=== PATIENT | male | born 1940 | race Caucasian/White ===

== ENCOUNTER 2018-02-19 09:59 | Day surgery (SDC) | payer MEDICARE, OTHER ==
[~2018-02-19] VITALS: Ht 182.9 cm; Wt 80.9 kg
[~2018-02-19 09:59] MED LIST: ASPI81CH PO; MULTI VITAMIN1 EACH PO; Omeprazole20 M1 PO; Simvastatin40 MG PO; TOCO1000 PO; TURMERIC500 M2 PO
[2018-02-19] MEDS ORDERED: Fish Oil 10001000 MG (10:30)
[2018-02-19] MEDS ORDERED: GLUC500 (10:30)
[2018-02-20] MEDS ORDERED: CYAN500 (14:51)
[2018-02-20] MEDS ORDERED: CHOL10002 (14:51)
== END 2018-02-19 12:28 | disposition home or self-care (01) ==
LOC: ORSCSDS 09:59
PROVIDERS: Anesthesiology
PROC: 3E0R33Z Introduction of Anti-inflammatory into Spinal Canal, Percutaneous Approach (ICD-10-PCS; principal; 2018-02-19 11:30)
DX: M51.16 Intervertebral disc disorders with radiculopathy, lumbar region (principal); Z87.891 Personal history of nicotine dependence; Z79.82 Long term (current) use of aspirin; Z79.899 Other long term (current) drug therapy
CPT/HCPCS: J1040

== ENCOUNTER 2018-02-20 13:40 | Day surgery (SDC) | payer MEDICARE, OTHER ==
[~2018-02-20] VITALS: Ht 185.4 cm; Wt 82.1 kg
[~2018-02-20 13:40] MED LIST changes: +Fish Oil 10001000 MG; +GLUC500
[2018-02-20] MEDS ORDERED: CHOL10002 (14:51)
[2018-02-20] MEDS ORDERED: CYAN500 (14:51)
== END 2018-02-20 23:00 | disposition home or self-care (01) ==
LOC: ORSCMMR 13:40 → ORD 14:15 → ORSCMMR 14:15
PROVIDERS: Orthopaedic Surgery
PROC: 0LQ30ZZ Repair Right Upper Arm Tendon, Open Approach (ICD-10-PCS; principal; 2018-02-20 16:35)
DX: M66.821 Spontaneous rupture of other tendons, right upper arm (principal); Z87.891 Personal history of nicotine dependence; K21.9 Gastro-esophageal reflux disease without esophagitis; Z79.82 Long term (current) use of aspirin; Z79.899 Other long term (current) drug therapy
CPT/HCPCS: J0171; J0690; J1100; J2405; J3010; J7120

== ENCOUNTER 2019-06-22 08:23 | Day surgery (SDC) | payer MEDICARE, OTHER ==
[~2019-06-22] VITALS: Ht 175.3 cm; Wt 87.7 kg
[~2019-06-22 08:23] MED LIST changes: +CHOL10002; +CYAN500
== END 2019-06-22 10:55 | disposition home or self-care (01) ==
LOC: ORSCSDS 08:23
PROVIDERS: Internal Medicine Gastroenterology
PROC: 0DB58ZX Excision of Esophagus, Via Natural or Artificial Opening Endoscopic, Diagnostic (ICD-10-PCS; principal; 2019-06-22 10:00)
DX: K21.0 Gastro-esophageal reflux disease with esophagitis (principal); R13.10 Dysphagia, unspecified; K44.9 Diaphragmatic hernia without obstruction or gangrene; R23.4 Changes in skin texture; K22.8 Other specified diseases of esophagus; Z87.891 Personal history of nicotine dependence; Z79.899 Other long term (current) drug therapy; Z79.82 Long term (current) use of aspirin
CPT/HCPCS: 88305; 88312; J2704; J7120

== ENCOUNTER 2021-08-09 14:26 | Inpatient (IN) | payer OTHER ==
[~2021-08-09] VITALS: Ht 182.9 cm; Wt 74.5 kg
[~2021-08-09 14:26] MED LIST changes: +AZAT50 PO; +Aspir 8181 MG PO; -CHOL10002; -CYAN500; +CYAN500 PO; +GLUC500 PO; +L-ARGININE500 MG PO; +OMEGA-3 KRILL1 EAC3 PO; +VITAMIN D31000 UNI1 PO
[2021-08-09 16:32] LABS: Source, Urine Catheter
[2021-08-09 16:35] LABS: Appearance, Urine Clear (Clear); Bilirubin, Urine Neg (Neg); Blood, Urine Neg (Neg); Color, Urine Yellow (P-Yellow); Glucose Qualitative, Urine Neg (Neg); Ketones, Urine Neg (Neg); Leukocyte Esterase, Urine Neg (Neg); Nitrite, Urine Neg (Neg); Protein, Urine Neg (Neg); Urobilinogen, Urine NORM (Normal)
[2021-08-09 16:43] LABS: BASOPHILS ABSOLUTE AUTO 0.04 K/mm3 (0.00-0.23); BASOPHILS PERCENT AUTO 0 % (0-2); EOSINOPHILS ABSOLUTE AUTO 0.29 K/mm3 (0.00-0.68); EOSINOPHILS PERCENT AUTO 2 % (0-6); Hemoglobin 12.3 g/dL (13.5-17.5); IMMATURE GRAN ABSOLUTE AUTO 0.05 K/mm3 (0.00-0.10); IMMATURE GRAN PERCENT AUTO 0 % (0-1); LYMPHOCYTES ABSOLUTE AUTO 1.27 K/mm3 (0.84-5.20); LYMPHOCYTES PERCENT AUTO 10 % (21-46); MONOCYTES ABSOLUTE AUTO 1.06 K/mm3 (0.16-1.47); MONOCYTES PERCENT AUTO 8 % (4-13); Mean Corpuscular HGB 33.5 pg (26.0-34.0); Mean Corpuscular HGB Conc 33.2 g/dL (31.5-36.5); Mean Corpuscular Volume 101 fL (80-100); Mean Platelet Volume 8.6 fL (9.1-12.4); NEUTROPHILS ABSOLUTE AUTO 10.02 K/mm3 (1.96-9.15); NEUTROPHILS PERCENT AUTO 79 % (41-73); Platelet Count 226 K/mm3 (150-400); RDW Coefficient Variation 13.3 % (11.7-14.2); RDW Standard Deviation 49.7 fL (35.1-46.3); Red Blood Cell Count 3.67 M/mm3 (4.30-5.90); White Blood Cell Count 12.73 K/mm3 (4.00-11.30)
[2021-08-09 17:15] LABS: Alanine Aminotransfer (ALT/SGP 25 U/L (12-78); Albumin, Blood 3.3 g/dL (3.4-5.0); Albumin/Globulin Ratio 0.9 (0.8-1.8); Alk Phos 39 U/L (50-136); Anion Gap 5 mmol/L (6-16); Aspartate Aminotrans (AST/SGOT 28 U/L (12-37); Bilirubin, Total 0.4 mg/dL (0.1-1.0); Blood Urea Nitrogen 20 mg/dL (8-24); CO2, Blood 27 mmol/L (21-32); Calcium, Blood 9.1 mg/dL (8.5-10.1); Chloride, Blood 107 mmol/L (98-108); Creatinine, Blood 0.74 mg/dL (0.60-1.20); Globulin, Blood 3.7 g/dL (2.2-4.0); Glomerular Filtration Rate >60 (60-); Glucose, Blood 99 mg/dL (70-99); Potassium, Blood 3.8 mmol/L (3.5-5.5); Sodium, Blood 139 mmol/L (136-145)
[2021-08-09 17:49] LABS: Influenza A, PCR NEGATIVE (NEGATIVE); Influenza B, PCR NEGATIVE (NEGATIVE); Resp Syncytial Virus, PCR NEGATIVE (NEGATIVE); SARS-Cov-2 (COVID-19) PCR, MMC NEGATIVE (NEGATIVE)
[2021-08-10 05:40] LABS: Hematocrit 37.5 % (37.0-53.0); Hemoglobin 12.1 g/dL (13.5-17.5); Mean Corpuscular HGB Conc 32.3 g/dL (31.5-36.5); Mean Corpuscular Volume 102 fL (80-100); Mean Platelet Volume 8.8 fL (9.1-12.4); Platelet Count 224 K/mm3 (150-400); RDW Coefficient Variation 13.3 % (11.7-14.2); RDW Standard Deviation 51.2 fL (35.1-46.3); Red Blood Cell Count 3.67 M/mm3 (4.30-5.90); White Blood Cell Count 9.96 K/mm3 (4.00-11.30)
[2021-08-10 06:06] LABS: Alanine Aminotransfer (ALT/SGP 24 U/L (12-78); Albumin, Blood 3.2 g/dL (3.4-5.0); Albumin/Globulin Ratio 0.8 (0.8-1.8); Alk Phos 33 U/L (50-136); Anion Gap 3 mmol/L (6-16); Aspartate Aminotrans (AST/SGOT 21 U/L (12-37); Bilirubin, Total 0.5 mg/dL (0.1-1.0); Blood Urea Nitrogen 12 mg/dL (8-24); Bun/Creatinine Ratio 17.7 (12.0-20.0); CO2, Blood 28 mmol/L (21-32); Calcium, Blood 8.9 mg/dL (8.5-10.1); Chloride, Blood 107 mmol/L (98-108); Creatinine, Blood 0.68 mg/dL (0.60-1.20); Globulin, Blood 3.8 g/dL (2.2-4.0); Glomerular Filtration Rate >60 (60-); Glucose, Blood 121 mg/dL (70-99); Sodium, Blood 138 mmol/L (136-145)
--- NOTE | 2021-08-10 06:16 | NUR ---
Pt is in bed at this time where he remains throughout the night and is resting comfortably in stable condition. Medicated with IV fentanyl for right leg pain as needed secondary to right leg fx, no other complaints. He verbalized pain relief. He is assisted with care and ADLs, ramos catheter is intact and is draining yellow-colored urine. Call light given to him and was encouraged to call for help when assistance is needed as he is monitored.
--- NOTE | 2021-08-10 14:54 | NUR ---
08/10/21 1454 LUZJEMAL BOWERS PT NOTED TO HAVE PRE EXISTING HASSAN CATH PRIOR TO PROCEDURE.
--- NOTE | 2021-08-10 18:31 | NUR ---
PATIENT CURRENTLY LYING IN BED WITH NO SIGNS OR SYMPTOMS ACUTE DISTRESS NOTED. NO COMPLAINTS OR NAUSEA AT THIS TIME. PATIENT BACK FROM SURGERY AT 1630, TOLERTATING DIET. TXA GIVEN PER ORDERS. PATIENT ABLE TO FEEL TOES AND FEET BUT STILL UNABLE TO MOVE HIS LEGS OR FEET. DRESSING TO R HIP CDI. HASSAN CATH IS PATENT DRAINING YELLOW URINE. HASSAN TO BE DC'D IN THE AM. VITAL SIGNS STABLE. ROOM AIR. CIWA SCORE WAS 0 AT 1715. HEATHER SORIANO.
[2021-08-11 04:07] LABS: BASOPHILS ABSOLUTE AUTO 0.02 K/mm3 (0.00-0.23); BASOPHILS PERCENT AUTO 0 % (0-2); EOSINOPHILS ABSOLUTE AUTO 0.42 K/mm3 (0.00-0.68); EOSINOPHILS PERCENT AUTO 5 % (0-6); Hematocrit 27.5 % (37.0-53.0); IMMATURE GRAN ABSOLUTE AUTO 0.03 K/mm3 (0.00-0.10); IMMATURE GRAN PERCENT AUTO 0 % (0-1); LYMPHOCYTES ABSOLUTE AUTO 1.73 K/mm3 (0.84-5.20); LYMPHOCYTES PERCENT AUTO 21 % (21-46); MONOCYTES ABSOLUTE AUTO 1.17 K/mm3 (0.16-1.47); MONOCYTES PERCENT AUTO 14 % (4-13); Mean Corpuscular HGB 33.7 pg (26.0-34.0); Mean Corpuscular HGB Conc 32.7 g/dL (31.5-36.5); Mean Corpuscular Volume 103 fL (80-100); Mean Platelet Volume 8.9 fL (9.1-12.4); NEUTROPHILS ABSOLUTE AUTO 4.91 K/mm3 (1.96-9.15); NEUTROPHILS PERCENT AUTO 59 % (41-73); Platelet Count 162 K/mm3 (150-400); RDW Coefficient Variation 13.4 % (11.7-14.2); RDW Standard Deviation 50.2 fL (35.1-46.3); Red Blood Cell Count 2.67 M/mm3 (4.30-5.90); White Blood Cell Count 8.28 K/mm3 (4.00-11.30)
[2021-08-11 04:27] LABS: Anion Gap 4 mmol/L (6-16); Blood Urea Nitrogen 12 mg/dL (8-24); Bun/Creatinine Ratio 14.9 (12.0-20.0); CO2, Blood 28 mmol/L (21-32); Calcium, Blood 8.1 mg/dL (8.5-10.1); Chloride, Blood 105 mmol/L (98-108); Creatinine, Blood 0.81 mg/dL (0.60-1.20); Glomerular Filtration Rate >60 (60-); Glucose, Blood 113 mg/dL (70-99); Magnesium, Blood 2.2 mg/dL (1.6-2.4); Potassium, Blood 4.1 mmol/L (3.5-5.5); Sodium, Blood 137 mmol/L (136-145)
--- NOTE | 2021-08-11 05:42 | NUR ---
Pt is in bed at this time where he remains through the night and is resting comfortably in stable condition. He right leg post op day 1, medicated with oral pain med as needed with positive effect, assisted with care and toileting needs. Assisted with other care / ADLs, medicated, call light placed hear him and was encouraged to call for help when assistance is needed as he is monitored.
--- NOTE | 2021-08-11 16:51 | NUR ---
Pt. has been accepted to [facility] for inpatient rehab. Prior auth obtained through [employer]. Chart notes faxed to facility. If pt. is appropriate for discharge over the weeked, he will need a STAT COVID test, transport scheduled through [facility] at [phone], and all discharge paperwork added to chart. Facility will need to receive negative COVID results via fax as well. Please contact Zayra Sanchez at [phone]
--- NOTE | 2021-08-11 17:13 | NUR ---
Shift Summary: Pt. up in recliner chair and tolerating well, remains toe touch RLE. Pain managed with Toradol this a.m. and Jimmy today, verbalize relief of pain as a 12/21. visiting in room. in this a.m. and shira. to RLE changed, ana.
--- NOTE | 2021-08-11 18:24 | NUR ---
continue to watch t.v. in recliner, tolerating well. states his pain is "under control" with vicodin i, approx q 4 hour.
[2021-08-12 04:15] LABS: Hematocrit 26.4 % (37.0-53.0); Hemoglobin 8.6 g/dL (13.5-17.5)
[2021-08-12 04:30] LABS: Anion Gap 2 mmol/L (6-16); Blood Urea Nitrogen 11 mg/dL (8-24); Bun/Creatinine Ratio 14.8 (12.0-20.0); CO2, Blood 29 mmol/L (21-32); Calcium, Blood 8.4 mg/dL (8.5-10.1); Chloride, Blood 105 mmol/L (98-108); Creatinine, Blood 0.74 mg/dL (0.60-1.20); Glomerular Filtration Rate >60 (60-); Glucose, Blood 111 mg/dL (70-99); Potassium, Blood 4.3 mmol/L (3.5-5.5); Sodium, Blood 136 mmol/L (136-145)
--- NOTE | 2021-08-12 06:24 | NUR ---
Pt is in bed at this time and is resting comfortably in stable condition. Assisted with care and ADLs, assisted with toileting needs, with turning and repositioning to enhance comfort. Reported right upper leg pain and was medicated with his PRN hydrocodone accordingly, no other complaints. His call light was placed near him and was encouraged to call for help when assistance is needed as he is monitored.
--- NOTE | 2021-08-12 18:38 | NUR ---
SHIFT SUMMARY PATIENT IS POD 2 CLOSED REDUCTION AND NAILING OF R HIP. FOAM DRESSING C/D/I; TOE TOUCH WB IN PLACE, PATIENT UP WITH ASSIST FROM BED TO CHAIR ON SHIFT; VSS. PATIENT REPORTS PAIN AT SURGICAL SITE AND REQUESTS PRN MEDICATION Q4HRS. PATIENT NEEDS EDUCATION AND REINFORCEMENT OF DUE TIMES FOR MEDICATION. CIWA PROTOCOL IN PLACE WITH SCORE OF 1 FOR MILD ANXIETY. PER DR BARBOSA PLAN FOR DC TO [facility] ON SATURDAY
[2021-08-13 04:03] LABS: Hematocrit 24.4 % (37.0-53.0); Hemoglobin 7.9 g/dL (13.5-17.5)
--- NOTE | 2021-08-13 06:08 | NUR ---
SHIFT SUMMARY POD3 R CLOSED REDUCTION FEMUR FX NAILING, A/O X4, VSS, TOLERATING PO, HEAVY 2-3 PERSON ASSIST TO TRANSFER/STAND PIVOT, PAIN MANAGED PER EMAR. NO ACUTE ENVENTS THIS SHIFT, NO BM SINCE OR. CALL LIGHT IN PLACE, WILL CTM AND REPORT TO DAY RN.
[2021-08-13 12:10] LABS: Hematocrit 24.8 % (37.0-53.0); Hemoglobin 8.1 g/dL (13.5-17.5)
--- NOTE | 2021-08-13 18:16 | NUR ---
SHIFT SUMMARY PT POD #3 FOR R CLOSED HIP REDUCTION WITH NAILING. [address] ON THE R HIP CDI. MEDICATED FOR PAIN PER EMR ORDERS. PT TO DC TO [facility] ON SATURDAY. VSS. WILL REPORT TO ANGELA WISEMAN.
--- NOTE | 2021-08-14 06:57 | NUR ---
PT IS A/OX3. ABLE TO MAKE HIS NEEDS KNOWN. NO EVENTS OVER NIGHT. IS [place]. 2PA WITH BED REPOSITIONING. HAS 2 AQUACEL DRSG'S TO RT HIP, BOTH WITH MINIMAL AMT OF OLD DRNG/SHADOWING. DENIED ANY NUNBNESS/TINGLING TO RLE. GOOD CSM'S.
[2021-08-14 08:33] LABS: Hematocrit 24.5 % (37.0-53.0)
[2021-08-14 10:38] LABS: SARS-Cov-2 (COVID-19) PCR, MMC NEGATIVE (NEGATIVE)
--- NOTE | 2021-08-14 17:09 | NUR ---
SHIFT SUMMARY PATIENT ALERT, ORIENTED AND MUCKLESHOOT. TOLERATING REGULAR DIET AND FLUIDS. SALINE LOCKED. USING URINAL. NO BM AT SINCE SURGERY. PATIENT HAS BEEN REFUSING SOME BOWEL CARE UP TO THIS TIME, BUT AFTER DISCUSSING EED FOR BM BEFORE DISCHARGE TO SNF PATIENT AGREED TO BOWEL CARE. READY FOR DISCHARGE TO [facility] AFTER BM. 2 PERSON MOD ASSIST WITH FWW AND GAIT BELT FOR TRANSFERS. AQUACELS TO RIGHT HIP WITH SHADOWING. WILL REPORT TO MANGLE TENDER RN.
[2021-08-15 00:33] LABS: Influenza A, PCR NEGATIVE (NEGATIVE); Influenza B, PCR NEGATIVE (NEGATIVE); Resp Syncytial Virus, PCR NEGATIVE (NEGATIVE); SARS-Cov-2 (COVID-19) PCR, MMC NEGATIVE (NEGATIVE)
[2021-08-15 04:46] LABS: Hematocrit 23.9 % (37.0-53.0); Hemoglobin 7.7 g/dL (13.5-17.5)
[2021-08-15 05:03] LABS: Anion Gap 3 mmol/L (6-16); Blood Urea Nitrogen 15 mg/dL (8-24); Bun/Creatinine Ratio 22.2 (12.0-20.0); CO2, Blood 30 mmol/L (21-32); Calcium, Blood 8.4 mg/dL (8.5-10.1); Chloride, Blood 104 mmol/L (98-108); Creatinine, Blood 0.68 mg/dL (0.60-1.20); Glomerular Filtration Rate >60 (60-); Glucose, Blood 103 mg/dL (70-99); Potassium, Blood 4.2 mmol/L (3.5-5.5); Sodium, Blood 137 mmol/L (136-145)
--- NOTE | 2021-08-15 05:40 | NUR ---
Pt is in bed at this time where he remains during the night and is resting comfortably in stable condition. Assisted with care and ADLs, assisted with repositioning to enhance comfort. Call light placed near him and was encouraged to call for help when assistance is needed as he is monitored.
--- NOTE | 2021-08-15 10:06 | NUR ---
Pt. on bed noguera at this time, had very large formed stool. Fleets enema not needed.
--- NOTE | 2021-08-15 11:50 | NUR ---
Pt. discharged to [facility] at 1130 via w/c transport. Called to give report and facility reports they will call back for report. Pt. belongings sent with pt. and paperwork sent with transport personell. Patient denies pain. 2 person transfer from bed using gait belt to w/c.
--- NOTE | 2021-08-15 17:20 | NUR ---
Patient accepted to [facility]. Transportation arranged for 11:30 am today. Discharge packet faxed to facility and sent with pt. YAMILETH team will contact staff at [facility] to schedule hospital F/U within 5-7 days post discharge.
== END 2021-08-15 11:30 | disposition home or self-care (01) | DRG 482 ==
LOC: ER 14:26 → SURS 18:03
PROVIDERS: Emergency Medicine; Family Medicine; Internal Medicine; Orthopaedic Surgery; ADMIT Family Medicine
PROC: 0QS606Z Reposition Right Upper Femur with Intramedullary Internal Fixation Device, Open Approach (ICD-10-PCS; principal; 2021-08-10 14:00)
DX: S72.141A Displaced intertrochanteric fracture of right femur, initial encounter for closed fracture (principal); W11.XXXA Fall on and from ladder, initial encounter; K21.9 Gastro-esophageal reflux disease without esophagitis; E78.5 Hyperlipidemia, unspecified; D63.8 Anemia in other chronic diseases classified elsewhere; F10.10 Alcohol abuse, uncomplicated; K44.9 Diaphragmatic hernia without obstruction or gangrene; D64.89 Other specified anemias; I35.0 Nonrheumatic aortic (valve) stenosis; K59.00 Constipation, unspecified; J84.10 Pulmonary fibrosis, unspecified; Z98.890 Other specified postprocedural states; Z87.891 Personal history of nicotine dependence; Z79.899 Other long term (current) drug therapy; Z79.82 Long term (current) use of aspirin
CPT/HCPCS: 0241U; 36415; 51702; 71045; 73502; 80048; 80053; 81003; 83690; 83735; 84100; 85014; 85018; 85025; 85027; 90714; 93005; 93010; 94762; 96374; 96375; 96376; 97110; 97162; 97166; 97530; 97535; 99285-25; A9270; C1713; C1769; J0171; J0690; J1650; J1885; J2370; J2405; J2704; J3010; J3411; J3475; J7030; J7042; J7120; J7500; U0004

== ENCOUNTER 2024-02-14 15:28 | Inpatient (IN) | payer OTHER ==
[~2024-02-14] VITALS: Ht 182.9 cm; Wt 84.2 kg
[~2024-02-14 15:28] MED LIST changes: -TOCO1000 PO; +VITAMIN E90 MG PO
[2024-02-14 15:58] LABS: BASOPHILS ABSOLUTE AUTO 0.03 K/mm3 (0.00-0.23); BASOPHILS PERCENT AUTO 0 % (0-2); EOSINOPHILS ABSOLUTE AUTO 0.05 K/mm3 (0.00-0.68); EOSINOPHILS PERCENT AUTO 1 % (0-6); Hematocrit 43.1 % (37.0-53.0); Hemoglobin 14.1 g/dL (13.5-17.5); IMMATURE GRAN ABSOLUTE AUTO 0.03 K/mm3 (0.00-0.10); IMMATURE GRAN PERCENT AUTO 0 % (0-1); LYMPHOCYTES ABSOLUTE AUTO 1.85 K/mm3 (0.84-5.20); LYMPHOCYTES PERCENT AUTO 22 % (21-46); MONOCYTES ABSOLUTE AUTO 0.93 K/mm3 (0.16-1.47); MONOCYTES PERCENT AUTO 11 % (4-13); Mean Corpuscular HGB 33.7 pg (26.0-34.0); Mean Corpuscular HGB Conc 32.7 g/dL (31.5-36.5); Mean Corpuscular Volume 103 fL (80-100); Mean Platelet Volume 9.8 fL (9.1-12.4); NEUTROPHILS ABSOLUTE AUTO 5.71 K/mm3 (1.96-9.15); NEUTROPHILS PERCENT AUTO 67 % (41-73); NRBC ABSOLUTE 0.03 K/mm3 (0.00-0.02); NRBC Auto 0.3 /100 WBC (0.0-0.2); Platelet Count 156 K/mm3 (150-400); RDW Coefficient Variation 15.3 % (11.7-14.2); RDW Standard Deviation 57.5 fL (35.1-46.3); Red Blood Cell Count 4.19 M/mm3 (4.30-5.90)
[2024-02-14 16:23] LABS: Bilirubin, Total 1.6 mg/dL (0.1-1.0); Bun/Creatinine Ratio 39.5 (12.0-20.0); Calcium, Blood 10.1 mg/dL (8.5-10.1); Creatinine, Blood 1.19 mg/dL (0.60-1.20); Globulin, Blood 3.9 g/dL (2.2-4.0); Potassium, Blood 4.6 mmol/L (3.5-5.5); Total Protein, Blood 7.9 g/dL (6.4-8.2)
[2024-02-14] MEDS ORDERED: NS 1,000 ML IV SCH ×2 (19:00→20:25)
[2024-02-14] MEDS ORDERED: Ampicillin Sod/Sulbactam Sod 3 GM in NS 100 ML IV ONE (19:00)
[2024-02-14] MEDS ORDERED: Ondansetron HCl 2 MG / ML 2ML Vial IV ONE (19:55)
[2024-02-14] MEDS ORDERED: Acetaminophen 325 MG TABLET PO PRN (22:45)
[2024-02-14] MEDS ORDERED: Furosemide 10 MG / ML 2ML Vial IV SCH (23:00)
[2024-02-14 23:29] LABS: Bilirubin, Direct 0.4 mg/dL (0.0-0.3)
[2024-02-14] MEDS ORDERED: Furosemide 10 MG/ML 4ML Vial IV SCH (23:30)
[2024-02-15] MEDS ORDERED: FUROSEMIDE40 MG PO (00:37)
[2024-02-15] MEDS ORDERED: KLOR-CON 1010 ME9 PO (00:37)
[2024-02-15 00:44] LABS: International Normalized Ratio 1.53; Prothrombin Time Results 15.9 Sec (9.7-11.5)
[2024-02-15] MEDS ORDERED: Ipratropium/Albuterol SulF 2.5-0.5MG/3 ML Amp INH PRN (01:30)
[2024-02-15 05:15] VITALS: BP 94/63
--- NOTE | 2024-02-15 05:16 | NUR ---
SHIFT SUMMARY NOC ADMIT FROM ED WITH SEVERE DYSPNEA AND POOR APPETITE FOR PAST MONTH. PT REPORTS 7-10LB WEIGHT LOSS DUE TO NO APPETITE. PT ON O2 4L/NC WHICH IS BASELINE BEING MONITORED VIA BIOX. PT IS A/O X 4. VERY [place] WITH ONLY L HEARING AIDE. PT IS ABLE TO AMBULATE WITH 1PA AND CANE, BUT GETS SOB VERY QUICKLY. PT LUNGS HAVE CRACKLES T/O. PT HAS HX OF PULMONARY FIBROSIS. PT HAD ELEVATED BNP 1772. HEPATITIS PANEL IS CURRENTLY PENDING. PT HAS ECHO SCHEDULED FOR TODAY. PT ON 1800 ML FLUID RESTRICTION. PT CURRENTLY RESTING WITH BED IN LOWEST POSITION, AND CALL LIGHT WITHIN REACH.
[2024-02-15 05:44] LABS: BASOPHILS ABSOLUTE AUTO 0.02 K/mm3 (0.00-0.23); BASOPHILS PERCENT AUTO 0 % (0-2); EOSINOPHILS ABSOLUTE AUTO 0.05 K/mm3 (0.00-0.68); EOSINOPHILS PERCENT AUTO 1 % (0-6); Hematocrit 36.9 % (37.0-53.0); Hemoglobin 12.1 g/dL (13.5-17.5); IMMATURE GRAN ABSOLUTE AUTO 0.03 K/mm3 (0.00-0.10); IMMATURE GRAN PERCENT AUTO 0 % (0-1); LYMPHOCYTES ABSOLUTE AUTO 1.38 K/mm3 (0.84-5.20); LYMPHOCYTES PERCENT AUTO 18 % (21-46); MONOCYTES ABSOLUTE AUTO 0.94 K/mm3 (0.16-1.47); MONOCYTES PERCENT AUTO 13 % (4-13); Mean Corpuscular HGB 33.5 pg (26.0-34.0); Mean Corpuscular HGB Conc 32.8 g/dL (31.5-36.5); Mean Corpuscular Volume 102 fL (80-100); Mean Platelet Volume 9.6 fL (9.1-12.4); NEUTROPHILS ABSOLUTE AUTO 5.07 K/mm3 (1.96-9.15); NEUTROPHILS PERCENT AUTO 68 % (41-73); Platelet Count 120 K/mm3 (150-400); RDW Coefficient Variation 15.4 % (11.7-14.2); RDW Standard Deviation 56.6 fL (35.1-46.3); Red Blood Cell Count 3.61 M/mm3 (4.30-5.90); White Blood Cell Count 7.49 K/mm3 (4.00-11.30)
[2024-02-15 07:11] LABS: Magnesium, Blood 1.6 mg/dL (1.6-2.4)
[2024-02-15 07:13] LABS: Albumin, Blood 3.5 g/dL (3.4-5.0); Albumin/Globulin Ratio 1.2 (0.8-1.8); Bilirubin, Total 1.4 mg/dL (0.1-1.0); Bun/Creatinine Ratio 39.3 (12.0-20.0); Calcium, Blood 9.3 mg/dL (8.5-10.1); Creatinine, Blood 1.07 mg/dL (0.60-1.20); Globulin, Blood 2.8 g/dL (2.2-4.0); Potassium, Blood 3.6 mmol/L (3.5-5.5); Total Protein, Blood 6.3 g/dL (6.4-8.2)
[2024-02-15 07:26] VITALS: BP 96/66
[2024-02-15] MEDS ORDERED: Enoxaparin 40 MG/0.4 ML SYR SC SCH (09:00)
[2024-02-15] MEDS ORDERED: Lactobacil 2-S.Thermo-Bifido 1 1 Cap PO SCH (09:00)
[2024-02-15 15:24] VITALS: BP 111/90
[2024-02-15 15:25] VITALS: BP 111/90
--- NOTE | 2024-02-15 16:37 | NUR ---
SHIFT SUMMARY Pt remains A&Ox3 this shift. MECHOOPDA. Denies pain. VSS. Lung sounds with fine crackles auscultated. IV diuretic given as ordered. NC at 4L baseline. Pt with increased dyspnea/respirations after napping for couple hours. Subsiding with sitting up. Encouraged to sit in recliner. BLE edeman noted. Urine measured this shift per urinal. Pt able to reposition self. Pt currently resting comfortably. No c/o. Will continue to monitor this shift.
[2024-02-15 19:46] VITALS: BP 118/89
--- NOTE | 2024-02-15 21:55 | NUR ---
PT REQUESTED FACE MASK FOR OXYGEN NEEDS 4L/NC. FACE MASK ATTEMTPED, BUT PT UNABLE TO TOLERATE MASK DUE TO CLAUSTROPHOBIA AND BEGAN TO PANIC. NC REAPPLIED AND O2 INCREASED FROM 4L-6L DUE TO PT CARMINA AND DESATURATING INTO LOW TO MID 80'S WHEN APNEIC EPISODES OCCUR. PT BEING MONITORED VIA CONTINOUS BIOX.
[2024-02-16] MEDS ORDERED: Melatonin 5 MG Tablet PO PRN (00:20)
[2024-02-16] MEDS ORDERED: QUEtiapine Fumarate 25 MG Tab PO PRN (00:25)
--- NOTE | 2024-02-16 00:45 | NUR ---
PT BREATHING REMAINS VERY LABORED, SPO2 STILL >95% ON 6L/NC. PT REPORTS FEELING HIGH ANXIETY AND NOT BEING BEING ABLE TO FALL ASLEEP. HOSPITALIST NOTIFIED AND VBG AND CHEST X RAY ORDERED. MELATONIN AND SEROQUEL ORDERED FOR ANXIETY AND SLEEP.
[2024-02-16 00:46] LABS: Base Excess Venous 1.6 mmol/L; Bicarbonate Venous 25.3 mmol/L (24.0-30.0); PCO2 Venous 38.1 mmHg (38-42); pH Blood Venous 7.44 (7.34-7.37)
[2024-02-16 04:23] VITALS: BP 127/90
--- NOTE | 2024-02-16 05:15 | NUR ---
SHIFT SUMMARY NOC PT A/O X 4. TACHYCARDIC AND HYPERVENTILATING. AT BEGINNING OF SHIFT PT REQUESTED FACE MASK FOR O2, BUT WAS NOT ABLE TO TOLERATE IT DUE TO CLAUSTROPHOBIA. NC PUT BACK ON, BUT O2 INCREASED TO 6L WITH SPO2 MAINTAINING >95% MONITORED BY CONTINOUS PULSE OXIMETRY. PT STILL VERY EDMEMATOUS BLE 4+ PITTING. ABDOMEN ALSO HAS EDEMA AND DISTENDED 3+. PT TAKING IV LASIX BID TO DIURESE. PT BREATHING REMAINS LABORED, BUT SPO2 STILL >95%. BLE ARE ELEVATED ON PILLOWS WITH LOWER BED ELEVATED. PT WANTS TO LAY FLAT , BUT WAS EDUCATED THAT IT WILL MAKE BREATHING MORE DIFFICULT DUE TO THE FLUID ON THEIR LUNGS. PT AGREED TO HAVE HOB ELEVATED. PT CURRENTLY RESTING WITH BED IN LOWEST POSITION, AND CALL LIGHT WITHIN REACH.
[2024-02-16 07:36] VITALS: BP 114/90
--- NOTE | 2024-02-16 10:05 | NUR ---
Follow up phone call to Dr. Garcia now with am CXR results and no lab orders this am. Pt remains on 4L NC. Lung sounds with crackles bilaterally. No new orders at this time. Will continue to monitor.
[2024-02-16] MEDS ORDERED: Metoprolol Succinate 25 MG TABCR PO SCH (11:00)
[2024-02-16] MEDS ORDERED: Lisinopril 5 MG Tab PO SCH (11:00)
[2024-02-16] MEDS ORDERED: Spironolactone 12.5 MG TAB PO SCH (11:00)
[2024-02-16] MEDS ORDERED: Spironolactone 25 MG Tab PO SCH (11:00)
[2024-02-16] MEDS ORDERED: Bumetanide 0.25 MG/ML 10ML Vial IV ONE (12:30)
[2024-02-16 12:56] LABS: BASOPHILS ABSOLUTE AUTO 0.02 K/mm3 (0.00-0.23); BASOPHILS PERCENT AUTO 0 % (0-2); EOSINOPHILS ABSOLUTE AUTO 0.09 K/mm3 (0.00-0.68); EOSINOPHILS PERCENT AUTO 1 % (0-6); Hematocrit 40.6 % (37.0-53.0); Hemoglobin 13.2 g/dL (13.5-17.5); IMMATURE GRAN ABSOLUTE AUTO 0.04 K/mm3 (0.00-0.10); IMMATURE GRAN PERCENT AUTO 1 % (0-1); LYMPHOCYTES ABSOLUTE AUTO 1.62 K/mm3 (0.84-5.20); LYMPHOCYTES PERCENT AUTO 19 % (21-46); MONOCYTES ABSOLUTE AUTO 0.96 K/mm3 (0.16-1.47); MONOCYTES PERCENT AUTO 11 % (4-13); Mean Corpuscular HGB 33.3 pg (26.0-34.0); Mean Corpuscular HGB Conc 32.5 g/dL (31.5-36.5); Mean Corpuscular Volume 103 fL (80-100); Mean Platelet Volume 9.7 fL (9.1-12.4); NEUTROPHILS ABSOLUTE AUTO 5.96 K/mm3 (1.96-9.15); NEUTROPHILS PERCENT AUTO 69 % (41-73); NRBC ABSOLUTE 0.02 K/mm3 (0.00-0.02); NRBC Auto 0.2 /100 WBC (0.0-0.2); Platelet Count 141 K/mm3 (150-400); RDW Coefficient Variation 15.6 % (11.7-14.2); RDW Standard Deviation 57.1 fL (35.1-46.3); Red Blood Cell Count 3.96 M/mm3 (4.30-5.90); White Blood Cell Count 8.69 K/mm3 (4.00-11.30)
[2024-02-16 13:16] LABS: Albumin, Blood 3.7 g/dL (3.4-5.0); Albumin/Globulin Ratio 1.1 (0.8-1.8); Bilirubin, Total 1.4 mg/dL (0.1-1.0); Bun/Creatinine Ratio 39.5 (12.0-20.0); Calcium, Blood 9.5 mg/dL (8.5-10.1); Creatinine, Blood 1.19 mg/dL (0.60-1.20); Globulin, Blood 3.3 g/dL (2.2-4.0); Potassium, Blood 3.7 mmol/L (3.5-5.5)
[2024-02-16] MEDS ORDERED: Mometasone/Formoterol MDI 200/5 mcg 13 GM INH SCH (14:15)
[2024-02-16 14:29] VITALS: BP 86/68
[2024-02-16] MEDS ORDERED: Omeprazole 20 MG CapCR PO SCH (16:30)
--- NOTE | 2024-02-16 17:14 | NUR ---
SHIFT SUMMARY Pt remains A&Ox3 this shift. PAIMIUT. Denies pain. OOB with cane this am. Encourage to sit in recliner to help with breathing, pt declines. Resp with fine crackles. Remains on baseline 4L NC. Continuous pulse ox in place. Increased urine output after IV Bumex. at bedside with updates from Dr. Garcia. Pain and safety maintained. Will continue to monitor.
[2024-02-16] MEDS ORDERED: Empagliflozin 10 MG TAB PO SCH (18:00)
[2024-02-16 19:43] VITALS: BP 92/67
[2024-02-16] MEDS ORDERED: Atorvastatin 10 MG Tab PO SCH (21:00)
[2024-02-17] VITALS (9 sets, daily range): BP systolic 86–112; BP diastolic 56–87
--- NOTE | 2024-02-17 01:42 | NUR ---
HR IRREGULAR ON CONT BIOX. IT WAS OBSERVED TO AVERAGE 60-80'S BPM W/HIGH OF 1TEENS UPON EXERTION AND TOUCHING LOW 38-40'S WHILE ASLEEP. HE WAS COMMENCED ON TOPROL AND LISINIPRIL ON DAY SHIFT. HS BP WAS ALSO SLIGHTLY HYPOTENSIVE AT 92/67 BUT PT DENIED S/S CARDIAC DISTRESS UPON NOCTE ASSESSMENT. MADE AWARE AND TELEMETRY RX'D AT THIS TIME.
--- NOTE | 2024-02-17 04:48 | NUR ---
SUMMARY: PT A/OX3, CALLS APPROPRIATELY TO SPECIFY NEEDS AND IS PLEASANT AND COOPERATIVE W/CARE. HE WASN'T OOB THIS SHIFT BUT DID SIT AT EOB TO USE URINAL INDEPENDENTLY. HE SEEMS TO BE DIURESING WELL FROM LASIX, SPIRONOLACTONE AND X1 BUMEX ON DAY SHIFT. PT WAS COMMENCED ON TELE D/T APICAL PULSE AND HR NOTED TO BE VERY IRREGULAR ON CONT BIOX (RANGING FROM 30'S-100'S BPM). HE'S AFIB AVERAGING 80'S BPM BUT TRENDS TO 100'S W/EXERTION. PT ALSO WAS HYPOTENSIVE T/O NOCTE W/SBP 80'S-90'S BUT WAS STARTED ON TOPROL AND LISINOPRIL ON DAY SHIFT. HE DENIED S/S CARDIAC DISTRESS, MD WAS NOTIFIED BUT NO NEW ORDERS WERE RECIEVED. EDEMA TO ABDO AND BLE'S REMAINS 3 TO 4+ W/LEGS ELEVATED IN BED ON PILLOWS. 1800ML FR MAINTAINED. LS ARE COARSE BUT SEEM IMPROVED FROM DAY REPORT. SPO2 IS WNL ON 4L O2 VIA NC. HE REPORTS SOB AT TIMES BUT HASN'T APPEARED DYSPNEIC OR HAVING ANY LABORED BREATHING. NO ACUTE CHANGES. WCTM AND REPORT TO DAY RN.
[2024-02-17 10:09] LABS: HEPATITIS A ANTIBODY, IGM Negative (Negative); HEPATITIS B CORE ANTIBODY, IGM Negative (Negative); HEPATITIS B SURFACE ANTIGEN Negative (Negative); HEPATITIS C AB CIA INTERP Negative (Negative); HEPATITIS C ANTIBODY CIA INDEX 0.07 IV
[2024-02-17] MEDS ORDERED: Furosemide 100 MG in NS 100 ML IV SCH (10:45)
[2024-02-17] MEDS ORDERED: Potassium Chloride 20 MEQ TabCR PO SCH (11:00)
[2024-02-17 14:20] LABS: BASOPHILS ABSOLUTE AUTO 0.01 K/mm3 (0.00-0.23); BASOPHILS PERCENT AUTO 0 % (0-2); EOSINOPHILS PERCENT AUTO 1 % (0-6); Hematocrit 38.8 % (37.0-53.0); Hemoglobin 12.5 g/dL (13.5-17.5); IMMATURE GRAN ABSOLUTE AUTO 0.04 K/mm3 (0.00-0.10); IMMATURE GRAN PERCENT AUTO 1 % (0-1); LYMPHOCYTES PERCENT AUTO 14 % (21-46); MONOCYTES ABSOLUTE AUTO 0.72 K/mm3 (0.16-1.47); MONOCYTES PERCENT AUTO 10 % (4-13); Mean Corpuscular HGB 33.5 pg (26.0-34.0); Mean Corpuscular HGB Conc 32.2 g/dL (31.5-36.5); Mean Corpuscular Volume 104 fL (80-100); Mean Platelet Volume 9.4 fL (9.1-12.4); NEUTROPHILS PERCENT AUTO 74 % (41-73); Platelet Count 127 K/mm3 (150-400); RDW Coefficient Variation 15.9 % (11.7-14.2); RDW Standard Deviation 59.1 fL (35.1-46.3); Red Blood Cell Count 3.73 M/mm3 (4.30-5.90); White Blood Cell Count 7.17 K/mm3 (4.00-11.30)
[2024-02-17 14:27] LABS: Bun/Creatinine Ratio 38.2 (12.0-20.0); Calcium, Blood 9.2 mg/dL (8.5-10.1); Creatinine, Blood 1.1 mg/dL (0.60-1.20); Potassium, Blood 3.4 mmol/L (3.5-5.5)
[2024-02-17] MEDS ORDERED: Sacubitril/Valsartan 24 MG-26 MG Tab PO SCH (15:00)
[2024-02-17] MEDS ORDERED: Metolazone 2.5 MG Tab PO SCH (15:00)
--- NOTE | 2024-02-17 16:53 | NUR ---
Shift Summary Pt alert and oriented to person, place, and month. He is hard of hearing He denies any chest pain/pressure, pain, numb/tingling. On tele, Afib in the 's. Blood pressures have been soft. Diminished breath sounds with some SOB with exertion. 02 in the 's on 4L via NC. BLE 3+ pitting edema from feet to knees. Cardiology consulted, Repeated EKG. Discussed the importance of strict monitoring of I's and O's. Pt declines placment of condom cath and educated on using urinal. Other VSS. Will continue to monitor at this time.
--- NOTE | 2024-02-17 18:37 | NUR ---
Shift Summary Pt transfered from medical unit this am due to soft BP and the need for a lasix gtt; cardiology at bedside this afternoon, new orders entered. Clarified if MD wanted parameters, no new orders. Other vss. Will continue to monitor. I have reviewed Dilma's documentation and am in agreement.
[2024-02-18] VITALS (15 sets, daily range): BP systolic 90–129; BP diastolic 61–109
[2024-02-18 03:46] LABS: BASOPHILS ABSOLUTE AUTO 0.02 K/mm3 (0.00-0.23); BASOPHILS PERCENT AUTO 0 % (0-2); EOSINOPHILS ABSOLUTE AUTO 0.14 K/mm3 (0.00-0.68); EOSINOPHILS PERCENT AUTO 2 % (0-6); Hematocrit 38.8 % (37.0-53.0); Hemoglobin 12.6 g/dL (13.5-17.5); IMMATURE GRAN ABSOLUTE AUTO 0.03 K/mm3 (0.00-0.10); IMMATURE GRAN PERCENT AUTO 0 % (0-1); LYMPHOCYTES ABSOLUTE AUTO 1.37 K/mm3 (0.84-5.20); LYMPHOCYTES PERCENT AUTO 19 % (21-46); MONOCYTES ABSOLUTE AUTO 0.93 K/mm3 (0.16-1.47); MONOCYTES PERCENT AUTO 13 % (4-13); Mean Corpuscular HGB 33.2 pg (26.0-34.0); Mean Corpuscular HGB Conc 32.5 g/dL (31.5-36.5); Mean Corpuscular Volume 102 fL (80-100); Mean Platelet Volume 9.3 fL (9.1-12.4); NEUTROPHILS ABSOLUTE AUTO 4.68 K/mm3 (1.96-9.15); NEUTROPHILS PERCENT AUTO 65 % (41-73); Platelet Count 124 K/mm3 (150-400); RDW Coefficient Variation 15.8 % (11.7-14.2); RDW Standard Deviation 56.7 fL (35.1-46.3); Red Blood Cell Count 3.79 M/mm3 (4.30-5.90); White Blood Cell Count 7.17 K/mm3 (4.00-11.30)
[2024-02-18 04:19] LABS: Albumin, Blood 3.6 g/dL (3.4-5.0); Albumin/Globulin Ratio 1.1 (0.8-1.8); Bilirubin, Total 1.3 mg/dL (0.1-1.0); Bun/Creatinine Ratio 38.5 (12.0-20.0); Calcium, Blood 9.7 mg/dL (8.5-10.1); Creatinine, Blood 1.04 mg/dL (0.60-1.20); Globulin, Blood 3.4 g/dL (2.2-4.0); Potassium, Blood 2.8 mmol/L (3.5-5.5)
[2024-02-18] MEDS ORDERED: Potassium Chloride 40 MEQ in NS 250 ML IV ONE (05:40)
[2024-02-18] MEDS ORDERED: NS 250 ML IV PRN (06:20)
--- NOTE | 2024-02-18 06:59 | NUR ---
SHIFT SUMMARY A/Ox3-4 AND COOPERATIVE WITH CARE. VERY HARD OF HEARING WITHOUT HIS HEARING AIDE, BUT IS ABLE TO MAKE HIS NEEDS KNOWN. NO ACUTE EVENTS OVERNIGHT. CARDIAC, REMAINS IN AFIB RANGING 80-90'S WITH NO REPORTS OF CP OR PRESSURE. SBP HAS BEEN STABLE RANGING 100-120'S. RESPIRATORY, MAINTAINS SPO2 >90% ON 4-6L NC. DYSPNEA WITH EXERTION NOTED. GI/, ABLE TO USE URINAL INDEPENDENTLY AT BEDSIDE VOIDING CLEAR/YELLOW URINE. LASIX gtt HAS BEEN INFUSING T/O THE NIGHT ORDERED VIA EMAR. FR OF 2000ml IN EFFECT. NO NEW ORDERS AT THIS TIME, WILL REPORT TO ONCOMING RN. YOSVANY LLAMAS OF THIS NOTE.
[2024-02-18] MEDS ORDERED: Spironolactone 25 MG Tab PO SCH (07:00)
[2024-02-18 08:10] LABS: FOLATE (FOLIC ACID), SERUM >20.0 ng/mL (>3.0)
[2024-02-18] MEDS ORDERED: Bumetanide 1 MG Tab PO SCH ×2 (10:00→14:00)
[2024-02-18 12:37] LABS: Bun/Creatinine Ratio 37.2 (12.0-20.0); Calcium, Blood 9.9 mg/dL (8.5-10.1)
[2024-02-18] MEDS ORDERED: Potassium Chloride 20 MEQ TabCR PO ONE (12:50)
--- NOTE | 2024-02-18 18:38 | NUR ---
End of shift note. Pt has had a good day. Pt reports that he is starting to feel better. IV lasix was dc'd and changed to PO. Pt appreciates having less cords/lines attached to him. BP has been stable all shift. SBP in low 100s. Pt has been ambulating into the bathroom for BMs. Using urinal independently to void. Good output today. FR 2000mL. was in to visit today. Pt is able to make needs known, call light is within reach.
[2024-02-19 03:11] VITALS: BP 118/78
[2024-02-19 04:39] LABS: BASOPHILS ABSOLUTE AUTO 0.02 K/mm3 (0.00-0.23); BASOPHILS PERCENT AUTO 0 % (0-2); EOSINOPHILS ABSOLUTE AUTO 0.17 K/mm3 (0.00-0.68); EOSINOPHILS PERCENT AUTO 3 % (0-6); Hematocrit 40.5 % (37.0-53.0); Hemoglobin 13.2 g/dL (13.5-17.5); IMMATURE GRAN ABSOLUTE AUTO 0.03 K/mm3 (0.00-0.10); IMMATURE GRAN PERCENT AUTO 0 % (0-1); LYMPHOCYTES PERCENT AUTO 18 % (21-46); MONOCYTES ABSOLUTE AUTO 0.89 K/mm3 (0.16-1.47); MONOCYTES PERCENT AUTO 13 % (4-13); Mean Corpuscular HGB 33.1 pg (26.0-34.0); Mean Corpuscular HGB Conc 32.6 g/dL (31.5-36.5); Mean Corpuscular Volume 102 fL (80-100); Mean Platelet Volume 9.5 fL (9.1-12.4); NEUTROPHILS PERCENT AUTO 66 % (41-73); Platelet Count 116 K/mm3 (150-400); RDW Coefficient Variation 15.8 % (11.7-14.2); RDW Standard Deviation 57.7 fL (35.1-46.3); Red Blood Cell Count 3.99 M/mm3 (4.30-5.90); White Blood Cell Count 6.71 K/mm3 (4.00-11.30)
[2024-02-19 05:16] LABS: Albumin, Blood 3.6 g/dL (3.4-5.0); Albumin/Globulin Ratio 1.1 (0.8-1.8); Bilirubin, Total 1.3 mg/dL (0.1-1.0); Bun/Creatinine Ratio 36.9 (12.0-20.0); Calcium, Blood 9.7 mg/dL (8.5-10.1); Creatinine, Blood 1.03 mg/dL (0.60-1.20); Globulin, Blood 3.4 g/dL (2.2-4.0); Potassium, Blood 3.4 mmol/L (3.5-5.5)
--- NOTE | 2024-02-19 05:35 | NUR ---
SHIFT SUMMARY A/Ox4 AND COOPERATIVE WITH CARE. ANSWERS QUESTIONS APPROPRIATELY AND ABLE TO MAKE IS NEEDS KNOWN. NO ACUTE EVENTS OVERNIGHT. CARDIAC, REMAINS IN AFLUTTER 80-90'S WITH NO REPORT OF CP OR PALPATIONS. SBP HAS BEEN SOFT, BUT STABLE RANGING 90-100'S. RESPIRATORY, MAINTAINS SPO2 >90% ON BL OF 4LNC. CONTINUES TO HAVE SOME DYSPNEA WITH EXERTION, BUT REPORTS IMPROVEMENT TO WORK OF BREATHING WHEN COMPARED TO YESTERDAY. GI/, ABLE TO USE URINAL AT BEDISDE INDPENDENTLY WITH GOOD OUTPUT. NO NEW ORDERS AT THIS TIME, WILL REPORT TO ONCOMING RN. YOSVANY LLAMAS OF THIS NOTE.
[2024-02-19 08:00] VITALS: BP 97/68
[2024-02-19] MEDS ORDERED: Potassium Chloride 20 MEQ TabCR PO SCH (08:00)
--- NOTE | 2024-02-19 08:49 | NUR ---
ASSUMED CARE PT IS AWAKE ALERT ORIENTED X 4. HE IS IN GOOD SPIRITS TODAY. HAS A VISIOR AT BEDSIDE. PT ABLE TO EAT BREAKFAST WITH EASE. PT'S LUNGS CLEAR T/O, REMAINS ON 4L NC FINGER COLD HARD TO GET AN ACCURATE SATURATION HE HAS REGULAR BREATH RATE. . PT HAS SOFT ABD. + BT X 4 QUAD. PT HAS 2 PIV'S SALINE LOCKED . PT HAS AFIB RHYTHM ON HEART MONITOR. DR TELLEZ AND DR BRISENO IN TO SEE PT THIS AM. PT CHANGING TO MEDICAL FLOOR STATUS. PT IS STILL ON A FLUID RESTRICTIONS OF 1800ML/24 HRS. PT DUE TO VOID THIS AM, HAS BEEN URINATING WELL OVER NIGHT TOLD IN BEDSIDE HANDOVER.
[2024-02-19 12:16] LABS: Bun/Creatinine Ratio 38.6 (12.0-20.0); Calcium, Blood 9.7 mg/dL (8.5-10.1); Creatinine, Blood 0.96 mg/dL (0.60-1.20); Potassium, Blood 3.1 mmol/L (3.5-5.5)
--- NOTE | 2024-02-19 13:00 | NUR ---
PATIENT UPDATE ART HAS HAD AN ACTIVE MORNING BEING UP IN THE CHAIR ALL DAY FOR BREAKFAST AND LUNCH. HE DID ALSO HAVE A SHOWER WITH THE HELP OF THE PATIENT GROUNDS MANAGER'S. PT HAD VISITORS THIS MORNING WELL. HE REMAINS ON HIS OXYGEN HOME DOSE OF 4L NC. HIS VS HAVE STAYED STABLE T/O THE MORNING EVEN WITH ACTIVITY. HIS LOWER EXTREM. STILL REMAIN A 4+ PITTING EDEMA BILAT. RHYTHM IS A FLUTTER RATE IN THE 80'S. PT TO BE MOVED TO MEDICAL FLOOR.
--- NOTE | 2024-02-19 13:55 | NUR ---
Report given to medical floor nurse pt moved in w/c with pct to [phone]. tried calling for update no answer. to [phone]
--- NOTE | 2024-02-19 14:07 | NUR ---
TRANSFERED TO MEDICAL FLOOR. ABLE TO TRAVEL VIA W/C, ABLE TO STAND TO TRANSFER. DENIES PAIN. ON OXYGEN 4L NC. ON TELEMETRY IN AFIB WITH SOME PVCS PER [place] TECHNICAL DEVELOPER.
--- NOTE | 2024-02-19 14:31 | NUR ---
MD CALL DR VERAS CALLED AND NOTIFIED OF POTASSIUM RESULT FROM NOON REDRAW.
[2024-02-19 15:09] VITALS: BP 82/63
[2024-02-19] MEDS ORDERED: Potassium Chloride 40 MEQ in NS 250 ML IV ONE (15:15)
--- NOTE | 2024-02-19 18:03 | NUR ---
SHIFT SUMMARY MR ROMAN WAS TRANSFERED FROM PCU AT 2PM. RESTING IN BED NOW, FAMILY AT BEDSIDE. DENIES PAIN. SOB ON MINIMAL ACTIVITY ON 6L NC. EDUCATED ON FLUID RESTRICTION BUT HE IS HAVING DIFFICULTY WITH RESTRICTION. NO CALLS FROM BEHAVIORAL HEALTH AIDE. BED LOW, CALL LIGHT IN REACH.
[2024-02-19 19:42] VITALS: BP 88/74
[2024-02-19] MEDS ORDERED: Sacubitril/Valsartan 24 MG-26 MG Tab PO SCH (21:00)
[2024-02-19] MEDS ORDERED: Apixaban 5 MG Tab PO SCH (21:00)
[2024-02-19 23:30] VITALS: BP 97/66
[2024-02-20] VITALS (8 sets, daily range): BP systolic 73–127; BP diastolic 55–101
--- NOTE | 2024-02-20 04:25 | NUR ---
SHIFT SUMMARY PATIENT IS AOX3. PATIENT ADMITTED FOR DYSPNEA. PATIENT IS ABLE TO MAKE HIS NEEDS KNOWN. PATIENT IS A 1P ASSIST WITH FWW AND GAIT BELT TO THE BATHROOM. PATIENT NO REQUESTING WATER BUT REQUESTING FOR ICE CHIPS TO WET HIS MOUTH AND THROAT. PATIENT IS PLEASANT AND COOPERATIVE WITH CARE. BED IS LOCKED IN THE LOWEST POSITION WITH CALL LIGHT IN REACH. NO S/S OF DISTRESS NOTED. CARE IS ONGOING.
[2024-02-20 05:22] LABS: BASOPHILS ABSOLUTE AUTO 0.03 K/mm3 (0.00-0.23); BASOPHILS PERCENT AUTO 0 % (0-2); EOSINOPHILS ABSOLUTE AUTO 0.14 K/mm3 (0.00-0.68); EOSINOPHILS PERCENT AUTO 2 % (0-6); Hematocrit 37.4 % (37.0-53.0); Hemoglobin 12.5 g/dL (13.5-17.5); IMMATURE GRAN ABSOLUTE AUTO 0.03 K/mm3 (0.00-0.10); IMMATURE GRAN PERCENT AUTO 0 % (0-1); LYMPHOCYTES ABSOLUTE AUTO 1.28 K/mm3 (0.84-5.20); LYMPHOCYTES PERCENT AUTO 19 % (21-46); MONOCYTES ABSOLUTE AUTO 0.92 K/mm3 (0.16-1.47); MONOCYTES PERCENT AUTO 13 % (4-13); Mean Corpuscular HGB 33.7 pg (26.0-34.0); Mean Corpuscular HGB Conc 33.4 g/dL (31.5-36.5); Mean Corpuscular Volume 101 fL (80-100); Mean Platelet Volume 9.7 fL (9.1-12.4); NEUTROPHILS ABSOLUTE AUTO 4.48 K/mm3 (1.96-9.15); NEUTROPHILS PERCENT AUTO 65 % (41-73); Platelet Count 113 K/mm3 (150-400); RDW Coefficient Variation 15.6 % (11.7-14.2); RDW Standard Deviation 56.8 fL (35.1-46.3); Red Blood Cell Count 3.71 M/mm3 (4.30-5.90); White Blood Cell Count 6.88 K/mm3 (4.00-11.30)
[2024-02-20 05:54] LABS: Albumin, Blood 3.3 g/dL (3.4-5.0); Bilirubin, Total 1.3 mg/dL (0.1-1.0); Bun/Creatinine Ratio 38.3 (12.0-20.0); Calcium, Blood 9.4 mg/dL (8.5-10.1); Creatinine, Blood 0.91 mg/dL (0.60-1.20); Globulin, Blood 3.2 g/dL (2.2-4.0); Total Protein, Blood 6.5 g/dL (6.4-8.2)
[2024-02-20] MEDS ORDERED: Potassium Chloride 20 MEQ TabCR PO SCH (07:00)
[2024-02-20] MEDS ORDERED: Bumetanide 1 MG Tab PO SCH (09:00)
[2024-02-20] MEDS ORDERED: Metolazone 2.5 MG Tab PO SCH (09:00)
--- NOTE | 2024-02-20 10:48 | NUR ---
NOTIFICATION BY PHONE. PATIENT WITH LOW BP IN LEFT ARM AND CLOSE PRESSURES HIGHER IN RIGHT ARM. WATING TO HEAR BACK REGARDING HEART AND BLOOD PRESSURE MEDS NOT YET GIVEN AND CLARIFICATION ON BUMEX. LMOM, WAITHING FOR CALL BACK.
--- NOTE | 2024-02-20 11:33 | NUR ---
NURSE NOTIFIED THIS IS DR CHAPA PATIENT. LMOM FOR DR TELLEZ ABOUT BLOOD PRESSURE CURRENTLY 80S/50S, CALL FROM DESK TOP PUBLISHER PATIENT WAS HAVING FREQUENT PVCS, IN BIGEMINY AND TRGEMINY. NEEDING CLARIFICATION OF MEDICATIONS CURRENTLY ON DEC FOR 0900 GIVEN BP AND HR. HR NOW SINUS ARLINE AT 54, PATIENT ASYMPTOMATIC. WAITING FOR CALL BACK.
[2024-02-20] MEDS ORDERED: Magnesium Sulf 2 GM/Water 50ML 50 ML IV ONE (19:00)
--- NOTE | 2024-02-20 19:36 | NUR ---
SHIFT SUMMARY PATIENT WITH SOME RYTHM CHANGES THROUGH SHIFT INCLUDING 5 SECOND RUN OF RVR THIS EVENING, DR VERAS MADE AWARE, PATIENT ASYMPTOMATIC AT THAT TIME. HE CONTINUES TO BE SHORT OF BREATH WITH MINIMAL EXERTION. HE IS PLEASANT AND COOPERATIVE WITH CARE, ABLE TO MAKE NEEDS KNOWN. BED IN LOW POSITION, CALL LIGHT IN REACH. BED ALARM ON FOR SAFETY.
[2024-02-21 02:41] VITALS: BP 94/70
[2024-02-21 05:10] LABS: BASOPHILS ABSOLUTE AUTO 0.02 K/mm3 (0.00-0.23); BASOPHILS PERCENT AUTO 0 % (0-2); EOSINOPHILS ABSOLUTE AUTO 0.16 K/mm3 (0.00-0.68); EOSINOPHILS PERCENT AUTO 2 % (0-6); Hematocrit 37.9 % (37.0-53.0); Hemoglobin 12.6 g/dL (13.5-17.5); IMMATURE GRAN ABSOLUTE AUTO 0.02 K/mm3 (0.00-0.10); IMMATURE GRAN PERCENT AUTO 0 % (0-1); LYMPHOCYTES ABSOLUTE AUTO 1.45 K/mm3 (0.84-5.20); LYMPHOCYTES PERCENT AUTO 21 % (21-46); MONOCYTES ABSOLUTE AUTO 0.96 K/mm3 (0.16-1.47); MONOCYTES PERCENT AUTO 14 % (4-13); Mean Corpuscular HGB 33.3 pg (26.0-34.0); Mean Corpuscular HGB Conc 33.2 g/dL (31.5-36.5); Mean Corpuscular Volume 100 fL (80-100); Mean Platelet Volume 9.3 fL (9.1-12.4); NEUTROPHILS ABSOLUTE AUTO 4.46 K/mm3 (1.96-9.15); NEUTROPHILS PERCENT AUTO 63 % (41-73); Platelet Count 110 K/mm3 (150-400); RDW Coefficient Variation 15.5 % (11.7-14.2); RDW Standard Deviation 56.2 fL (35.1-46.3); Red Blood Cell Count 3.78 M/mm3 (4.30-5.90); White Blood Cell Count 7.07 K/mm3 (4.00-11.30)
--- NOTE | 2024-02-21 05:31 | NUR ---
END OF SHIFT SUMMARY PT A&OX4, TUNUNAK R>L, HEARING AID FOR LEFT EAR ONLY. PT REPORTS IMPROVEMENT IN SOB WITH EXERTION, REMAINS ON 4L VIA NC. EDEMA TO BLE, PER PT THIS HAS ALSO IMPROVED. PT AMBULATING TO BR WITH SBA AND FWW. VOIDING WELL. MAINTAINING FLUID RESTRICTION AND STRICT I&O MONITORING. NO ACUTE EVENTS OVERNIGHT.
[2024-02-21 05:42] LABS: Albumin, Blood 3.2 g/dL (3.4-5.0); Bilirubin, Total 1.3 mg/dL (0.1-1.0); Bun/Creatinine Ratio 37.6 (12.0-20.0); Calcium, Blood 9.2 mg/dL (8.5-10.1); Creatinine, Blood 0.93 mg/dL (0.60-1.20); Globulin, Blood 3.3 g/dL (2.2-4.0); Magnesium, Blood 2.1 mg/dL (1.6-2.4); Potassium, Blood 3.7 mmol/L (3.5-5.5); Total Protein, Blood 6.5 g/dL (6.4-8.2)
[2024-02-21 07:24] VITALS: BP 97/64
[2024-02-21] MEDS ORDERED: ELIQUIS2.5 MG PO (11:00)
[2024-02-21] MEDS ORDERED: ATOR10 PO (11:01)
[2024-02-21] MEDS ORDERED: MELATONIN5 M1 PO (11:01)
[2024-02-21] MEDS ORDERED: Bumetanide2 MG PO (11:01)
[2024-02-21] MEDS ORDERED: JARDIANCE10 MG PO (11:02)
[2024-02-21] MEDS ORDERED: METO2.5 PO (11:02)
[2024-02-21] MEDS ORDERED: METO25ER PO (11:04)
[2024-02-21] MEDS ORDERED: DULERA 100 MCG/13 GM INH (11:05)
[2024-02-21] MEDS ORDERED: POTCHL20ER PO (11:05)
[2024-02-21] MEDS ORDERED: ENTRESTO 24 MG1 EACH PO (11:06)
[2024-02-21] MEDS ORDERED: SPIR25 PO (11:07)
--- NOTE | 2024-02-21 15:04 | NUR ---
Patient ready for discharge, cardiology signed off and instructed RN that patient needs to f/u in 4 weeks. Reviewed new medications with patient and , verbalized understanding. wanted Rx sent to [facility] so they could get a couple days work of supplies, and wanted the rest of meds filled at their online mail delivery pharmacy. Patient left unit at 1430.
== END 2024-02-21 14:54 | disposition home health service (06) | DRG 196 ==
LOC: ER 15:28 → MEDS 15:29 → PCU 02-15 13:27 → MEDS 02-15 13:27 → PCU 02-17 12:10 → MEDS 02-19 13:58
PROVIDERS: Family Medicine; Internal Medicine; Physician Assistant; ADMIT Student in an Organized Health Care Education/Training Program
DX: J84.10 Pulmonary fibrosis, unspecified (principal); I50.23 Acute on chronic systolic (congestive) heart failure; J96.21 Acute and chronic respiratory failure with hypoxia; I42.0 Dilated cardiomyopathy; J96.11 Chronic respiratory failure with hypoxia; I48.92 Unspecified atrial flutter; Z66 Do not resuscitate; R74.01 Elevation of levels of liver transaminase levels; E80.6 Other disorders of bilirubin metabolism; D75.89 Other specified diseases of blood and blood-forming organs; K21.9 Gastro-esophageal reflux disease without esophagitis; E78.5 Hyperlipidemia, unspecified; F10.20 Alcohol dependence, uncomplicated; D64.9 Anemia, unspecified; I27.20 Pulmonary hypertension, unspecified; G47.33 Obstructive sleep apnea (adult) (pediatric); I70.0 Atherosclerosis of aorta; K44.9 Diaphragmatic hernia without obstruction or gangrene; I08.3 Combined rheumatic disorders of mitral, aortic and tricuspid valves; J44.9 Chronic obstructive pulmonary disease, unspecified; N40.0 Benign prostatic hyperplasia without lower urinary tract symptoms; J84.9 Interstitial pulmonary disease, unspecified; K76.1 Chronic passive congestion of liver; I95.9 Hypotension, unspecified; Z79.82 Long term (current) use of aspirin; Z87.891 Personal history of nicotine dependence; Z99.81 Dependence on supplemental oxygen
CPT/HCPCS: 36415; 71045; 71046; 76705; 80048; 80053; 80074; 82248; 82607; 82746; 82803; 83690; 83735; 83880; 85025; 85610; 93005; 93010; 94640; 94664; 94760; 94762; 96372; 96374; 96376; 99285-25; A9270; C8929; G0378; J1650; J1940; J3475; J3480; J7030; J7050; Q9957